=== PATIENT | female | born 1965 ===

== ENCOUNTER 2020-11-15 07:47 | Outpatient (CLI) | payer OTHER ==
[~2020-11-15 07:47] MED LIST: COZAAR25 MG PO; COZAAR50 MG; FLONASE16 GM NS; HYDRODIURIL12.5 MG PO; ZITHROMAX200 MG PO; ZYRTEC10 MG PO
[2020-12-13] MEDS ORDERED: COZAAR50 MG PO (08:40)
[2020-12-13] MEDS ORDERED: HYDROCHLOROTH12.5 MG PO (08:41)
== END 2020-11-15 13:45 | disposition home or self-care (01) ==
LOC: TOM 07:47
PROVIDERS: ATTEND Colon & Rectal Surgery
DX: K57.20 Diverticulitis of large intestine with perforation and abscess without bleeding (principal); N82.3 Fistula of vagina to large intestine

== ENCOUNTER 2020-12-13 09:40 | Inpatient (IN) | payer OTHER ==
[~2020-12-13] VITALS: Ht 162.6 cm; Wt 51.7 kg
[~2020-12-13 09:40] MED LIST changes: +COZAAR50 MG PO; +HYDROCHLOROTH12.5 MG PO
== END 2020-12-22 15:30 | disposition home or self-care (01) | DRG 330 ==
LOC: O/R 12-19 05:50 → SURG 12-19 05:50 → SURH 12-19 07:00 → SURG 12-19 11:39
PROVIDERS: ADMIT Colon & Rectal Surgery; ATTEND Colon & Rectal Surgery
PROC: 0DBN4ZZ Excision of Sigmoid Colon, Percutaneous Endoscopic Approach (ICD-10-PCS; 2020-12-19)
PROC: 0UQG4ZZ Repair Vagina, Percutaneous Endoscopic Approach (ICD-10-PCS; 2020-12-19)
PROC: 0DJD8ZZ Inspection of Lower Intestinal Tract, Via Natural or Artificial Opening Endoscopic (ICD-10-PCS; 2020-12-19)
PROC: 0DTP4ZZ Resection of Rectum, Percutaneous Endoscopic Approach (ICD-10-PCS; principal; 2020-12-19 07:00)
DX: K57.20 Diverticulitis of large intestine with perforation and abscess without bleeding (principal); N82.3 Fistula of vagina to large intestine